=== PATIENT | male | born 1945 | race Caucasian/White ===

== ENCOUNTER 2020-11-10 | Emergency (ER) | payer MEDICARE ==
[2020-11-10] MEDS ORDERED: NORVASC PO (11:37)
[2020-11-10] MEDS ORDERED: TYLENOL # 31 TA1 PO (11:37)
[2020-11-10] MEDS ORDERED: CLOPIDOGREL75 MG PO (11:38)
[2020-11-10] MEDS ORDERED: MAGNESI12 XX (11:39)
[2020-11-10] MEDS ORDERED: EPIPEN 2-P0.3 MG/0.3 (11:39)
[2020-11-10] MEDS ORDERED: KAPSPARGO SPRIN25 MG (11:40)
[2020-11-10] MEDS ORDERED: MEMANTINE HYDROC5 MG (11:40)
[2020-11-10] MEDS ORDERED: OMEPRAZOLE DR40 MG (11:41)
[2020-11-10] MEDS ORDERED: PRAVASTATIN20 MG PO (11:41)
[2020-11-10] MEDS ORDERED: TESTOST CYP200 MG/ML IM (11:42)
[2020-11-10] MEDS ORDERED: VENLAFAXINE HCL75 M1 PO ×2 (11:43→11:45)
[2020-11-10 11:55] LABS: IMMATURE GRANULOCYTES 0.6 % (0.0-5.0); MEAN CELL VOLUME 90.9 fL CALC (80.0-100.0); MEAN CORPUSCULAR HGB 27.9 pG CALC (26.0-32.0); MEAN CORPUSCULAR HGB CONC 30.6 g/dL CAL (32.0-36.0); NEUT# 4.67 thou/uL (1.82-7.42); RED BLOOD COUNT 3.41 mill/uL (4.70-6.10)
[2020-11-10 12:05] LABS: HEMOGLOBIN 9.5 g/dl (14.0-18.0)
[2020-11-10 12:11] LABS: URINE BILIRUBIN - DIPSTICK NEGATIVE (NEGATIVE); URINE BLOOD DIPSTICK NEGATIVE (NEGATIVE); URINE COLOR YELLOW; URINE GLUCOSE - DIPSTICK NEGATIVE (NEGATIVE); URINE KETONE NEGATIVE (NEGATIVE); URINE LEUK ESTERASE NEGATIVE (NEGATIVE); URINE PROTEIN - DIPSTICK 100 mg/dL (NEG-TRACE); URINE UROBILINOGEN - DIPSTICK 0.2 E.U./dL (0.2)
[2020-11-10 12:12] LABS: URINE NITRITE - DIPSTICK NEGATIVE (Negative)
[2020-11-10 12:14] LABS: ALBUMIN 4.2 g/dL (3.2-5.0); ALKALINE PHOSPHATASE 96 u/l (38-126); BUN 21 mg/dL (8-23); BUN/CREATININE RATIO 19 (12-20 (CALC)); CARBON DIOXIDE 31 mmol/l (22-30); CHLORIDE 94 mmol/l (95-108); CREATININE 1.1 mg/dL (0.7-1.3); GFR > 60 ML/MIN (>=60 (CALC)); GFR FOR AFR.AMER. > 60 ML/MIN (>=60 (CALC)); POTASSIUM 4.1 mmol/l (3.5-5.1); SGOT/AST 17 u/l (19-48)
[2020-11-10 12:21] LABS: ANION GAP 12 (6-22 (CALC)); BILIRUBIN, TOTAL 1.1 mg/dL (0.0-1.4); SODIUM 133 mmol/l (137-146)
[2020-11-10 12:25] LABS: MYOGLOBIN 59 ng/mL (0 - 121)
[2020-11-10 12:54] LABS: ACT PARTIAL THROMBO TIME 34.5 SECONDS (20.0-32.5); INTERNATIONAL NORMALIZED RATIO 1.1 RATIO (0.7-1.3); PROTHROMBIN TIME 11.4 SECONDS (9.0-12.5)
[2020-11-10 13:03] LABS: D-DIMER 0.61 mg/L (0.19-0.60)
== END 2020-11-10 22:36 ==
PROVIDERS: Emergency Medicine
DX: J18.9 Pneumonia, unspecified organism (principal); R09.02 Hypoxemia; I48.91 Unspecified atrial fibrillation; Z95.810 Presence of automatic (implantable) cardiac defibrillator; Z95.5 Presence of coronary angioplasty implant and graft; Z20.822 Contact with and (suspected) exposure to COVID-19; M79.89 Other specified soft tissue disorders
CPT/HCPCS: Q9967

== ENCOUNTER → 2022-08-31 | Emergency (ER) | payer MEDICARE ==
[~2022-08-31] MED LIST: CLOPIDOGREL75 MG PO; EPIPEN 2-P0.3 MG/0.3; KAPSPARGO SPRIN25 MG; MAGNESI12 XX; MEMANTINE HYDROC5 MG; NORVASC PO; OMEPRAZOLE DR40 MG; PRAVASTATIN20 MG PO; TESTOST CYP200 MG/ML IM; TYLENOL # 31 TA1 PO; VENLAFAXINE HCL75 M1 PO
== END | disposition home or self-care (01) ==
LOC: ED 10:13 → LWOBS 10:18
DX: Z53.21 Procedure and treatment not carried out due to patient leaving prior to being seen by health care provider (principal)